=== PATIENT | female | born 1990 | race Caucasian/White ===

== ENCOUNTER → 2018-09-22 11:59 | Outpatient (CLI) | payer BC, SELFPAY ==
[2018-09-22 12:26] LABS: Basophils % 0.2 % (0.1-2.0); Eosinophils % 0.2 % (0.1-12.0); Hematocrit 35.7 % (37.0-47.0); Lymphocytes # 1.4 K/mm3 (0.7-4.5); Mean Corpuscular HGB Conc 33.6 g/dL (31.8-35.4); Mean Corpuscular Hemoglobin 29.7 pg (27.0-31.2); Mean Corpuscular Volume 88.4 fl (81-99); Mean Platelet Volume 6.8 fl (7.4-10.4); Monocytes # 0.3 K/mm3 (0.1-1.0); Monocytes % 6.4 % (1.7-9.3); Neutrophils # 3.5 K/mm3 (1.8-7.8); Neutrophils % 67.1 % (37.0-80.0); Platelet Count 277 K/mm3 (142-424); Red Blood Count 4.04 M/mm3 (4.20-5.40); Red Cell Distribution Width 13.3 % (11.5-17.5); White Blood Count 5.2 K/mm3 (4.8-10.8)
[2018-09-23 07:09] LABS: HIV Screen 4th Generation wRfx Non Reactive (Non Reactive)
[2018-09-24 16:30] LABS: Hepatitis B Surface Antigen Negative (Negative); Hepatitis C Antibody <0.1 s/co ratio (0.0-0.9); Rubella Antibodies, IgG 1.64 index (Immune >0.99)
[2018-09-24 16:33] LABS: Rapid Plasma Reagin Ab Titer Non Reactive (NonRea<1:1)
== END ==
PROVIDERS: Visit Provider Nurse Practitioner Obstetrics & Gynecology
DX: Z34.90 Encounter for supervision of normal pregnancy, unspecified, unspecified trimester (principal)
CPT/HCPCS: 36415; 85025; 86592; 86703; 86762; 86850; 87340; 87380; G0432

== ENCOUNTER → 2018-09-29 12:50 | Outpatient (CLI) | payer BC, SELFPAY ==
--- NOTE | 2018-09-29 12:52 | US_ITS ---
PROCEDURE: US OB <= 14 WEEKS FETUS CLINICAL INDICATION: US OB Dates COMPARISON: OBTV US OB transvaginal from 10/29/2017 TECHNIQUE: FINDINGS: An intrauterine gestational sac is present with a pole with a crown-rump length of 5.76 cm correlating to gestational age of 12.43 week. heart tones are present with an FHR of 161 bpm. Yolk sac is noted. The amnion and chorion . Adnexa: IMPRESSION: Live IUP at 12 weeks 3 days Estimated due date by Ultrasound is 04/10/2019 Dictated by: Kaushik Medina MD 09/29/2018 17:45 Signed by: <Electronically signed by Kaushik Medina MD in [place]> 09/29/2018 17:45
== END ==
PROVIDERS: Visit Provider Nurse Practitioner Obstetrics & Gynecology
DX: O26.841 Uterine size-date discrepancy, first trimester (principal)
CPT/HCPCS: 76801

== ENCOUNTER → 2018-11-24 12:56 | Outpatient (CLI) | payer BC, SELFPAY ==
--- NOTE | 2018-11-24 12:59 | US_ITS ---
PROCEDURE: US OB /MATERNAL DETAIL CLINICAL INDICATION: us ob complete COMPARISON: US OB <= 14 WEEKS FETUS from 09/29/2018 FINDINGS: Single viable intrauterine gestation. Cephalic position. Placenta: Posteriorplacenta grade 1. There is average amount fluid. The cervix appears satisfactory. Closed and measuring 4 cm in length. Transabdominal scanning Complete survey performed and was unremarkable on the submitted images as in PACS. No discrete anomalies identified on survey imaging by technologist. Active fetus. Three-vessel cord with satisfactory umbilical cord insertion. 4- chamber heart noted. Survey of brain & ventricles Unremarkable. Face and neck survey unremarkable. Diaphragm and chest views unremarkable. Abdomen: Both kidneys noted and unremarkable. Stomach noted and satisfactory. Spine: Survey of the spine satisfactory with no anomalies identified nor imaged. Both arms and legs noted. Amniotic Fluid: Adequate. Maternal adnexa: No significant findings. Measurements: Average ultrasound age 20 weeks and 3 days. Gestational Age 20 weeks 4 days Estimated due date by ultrasound age 0304/10/2019. Estimated weight 346.3 gramsgrams. BPD = 20 weeks 5 days OFD = 21 weeks 0 days HC = 20 weeks 1 day AC = 20 weeks 5 days FL = 20 weeks 0 days Growth Percentile= 32 percent% Heart Rate = 142 bpm Cerebellum = 21 weeks 3 days Humerus = 20 weeks 1 day HC/AC is 1.13 CI is 0.77 FL/BPD is 0.66 FL/AC is 0.21 IMPRESSION: There is a single live fetus which is in cephalic presentation with an average ultrasound age of 20 weeks and 3 days. No obvious anomalies evident. Please see above for detail Dictated by: Kaushik Medina MD 11/25/2018 06:56 Electronically signed by Kaushik Medina MD in [place] 11/25/2018 06:56
== END ==
PROVIDERS: Visit Provider Nurse Practitioner Obstetrics & Gynecology
DX: Z36.0 Encounter for antenatal screening for chromosomal anomalies (principal)
CPT/HCPCS: 76811

== ENCOUNTER → 2019-01-06 10:44 | Outpatient (CLI) | payer BC, SELFPAY ==
[2019-01-06 11:10] LABS: Glucose,Fasting 78 mg/dL (60-105)
[2019-01-06 12:31] LABS: Glucose 1 Hour 137 mg/dL (74-106)
== END ==
PROVIDERS: Visit Provider Nurse Practitioner Obstetrics & Gynecology
DX: O99.814 Abnormal glucose complicating childbirth (principal)
CPT/HCPCS: 36415; 82951

== ENCOUNTER → 2019-01-22 09:46 | Outpatient (CLI) | payer BC, SELFPAY ==
[2019-01-22 10:20] LABS: Glucose,Fasting 81 mg/dL (60-105)
[2019-01-22 11:52] LABS: Glucose 1 Hour 129 mg/dL (74-106)
[2019-01-22 12:54] LABS: Glucose 2 Hour 97 mg/dL (74-106)
[2019-01-22 13:37] LABS: Glucose 3 Hour 95 mg/dL (74-106)
== END ==
PROVIDERS: Visit Provider Nurse Practitioner Obstetrics & Gynecology
DX: O99.814 Abnormal glucose complicating childbirth (principal)
CPT/HCPCS: 36415; 82951

== ENCOUNTER 2019-02-14 14:41 | Outpatient (CLI) | payer BC, SELFPAY ==
[2019-02-14 14:51] VITALS: BMI 34.0
[2019-02-14 15:15] LABS: Microscopic, Urine URINE MICROSCOPIC (MICROSCOPIC)
[2019-02-14 15:28] VITALS: BP 118/74; PULSE 90; RESP 18; TEMP 36.9; O2SAT 100; BMI 34.0
[2019-02-14 15:41] LABS: Amphetamine/Metha Screen,Urine Negative ng/mL (<1000); Barbiturates Screen,Urine Negative ng/mL (<200); Benzodiazepines Screen,Urine Negative ng/mL (<200); Cannabinoid Screen,Urine Positive ng/mL (<50); Cocaine Screen,Urine Negative ng/mL (<300); Methadone Screen,Urine Negative ng/mL (<300); Opiate Screen,Urine Negative ng/mL (<300); Phencyclidine Screen,Urine Negative ng/mL (<25)
[2019-02-14 16:31] LABS: Appearance,Urine SL CLOUDY (Clear); Bilirubin,Urine Negative (Negative); Blood, Urine Negative (Negative); Color,Urine YELLOW (Yellow); Glucose,Urine (UA) Negative (Negative); Ketones,Urine Negative (Negative); Leukocyte Esterase,Urine Negative (Negative); Nitrate,Urine Negative (Negative); Protein,Urine Negative (Negative); Urobilinogen,Urine 0.2 EU/dl (0.2)
[2019-02-14 16:50] LABS: Amorphous Sediment,Urine Trace /lpf; Bacteria,Urine Trace /lpf; Squamous Epithelial Cell,Urine Occasional #/hpf (0-5); WBC,Urine Occasional #/hpf (0-3)
== END 2019-02-14 15:25 | disposition home or self-care (01) ==
LOC: OBOUT 14:42 → OB 14:43
PROVIDERS: Visit Provider Nurse Practitioner Obstetrics & Gynecology
DX: O36.8130 Decreased fetal movements, third trimester, not applicable or unspecified (principal); Z3A.32 32 weeks gestation of pregnancy
CPT/HCPCS: 59025; 80305; 81001

== ENCOUNTER → 2019-03-12 16:06 | Outpatient (CLI) | payer BC, SELFPAY | PROVIDERS: Visit Provider Nurse Practitioner Obstetrics & Gynecology | DX: Z34.90 Encounter for supervision of normal pregnancy, unspecified, unspecified trimester (principal) | CPT/HCPCS: 86403 ==

== ENCOUNTER 2019-04-10 03:47 | Inpatient (IN) ==
[2019-04-10 05:47] LABS: Microscopic, Urine URINE MICROSCOPIC (MICROSCOPIC)
[2019-04-10 05:50] LABS: Basophils % 0.1 % (0.1-2.0); Eosinophils % 0.3 % (0.1-12.0); Hematocrit 35.1 % (37.0-47.0); Hemoglobin 11.7 g/dL (12.2-16.2); Lymphocytes # 1.9 K/mm3 (0.7-4.5); Lymphocytes % 17.2 % (10-50); Mean Corpuscular HGB Conc 33.4 g/dL (31.8-35.4); Mean Corpuscular Volume 85.1 fl (81-99); Mean Platelet Volume 8.7 fl (7.4-10.4); Monocytes # 0.5 K/mm3 (0.1-1.0); Monocytes % 4.5 % (1.7-9.3); Neutrophils # 8.6 K/mm3 (1.8-7.8); Neutrophils % 77.9 % (37.0-80.0); Platelet Count 240 K/mm3 (142-424); Red Blood Count 4.13 M/mm3 (4.20-5.40)
[2019-04-10 05:51] LABS: Appearance,Urine CLEAR (Clear); Bilirubin,Urine Negative (Negative); Blood, Urine Negative (Negative); Color,Urine YELLOW (Yellow); Glucose,Urine (UA) Negative (Negative); Ketones,Urine Negative (Negative); Leukocyte Esterase,Urine 1+ (Negative); PH,Urine 6.5 (5.0-8.5); Protein,Urine Negative (Negative); Urobilinogen,Urine 0.2 EU/dl (0.2)
[2019-04-10 05:58] LABS: Anion Gap 12.5 mEq/L (5-15)
[2019-04-10 06:04] LABS: Barbiturates Screen,Urine Negative ng/ml (<200); Benzodiazepines Screen,Urine Negative ng/ml (<200)
[2019-04-10 06:04] LABS: Calcium 9.4 mg/dl (8.4-10.2)
[2019-04-10 06:05] LABS: Amphetamine/Metha Screen,Urine Negative ng/ml (<1000)
[2019-04-10 06:06] LABS: Cannabinoid Screen,Urine Negative ng/ml (<50)
[2019-04-10 06:26] LABS: Bacteria,Urine 2+ /lpf; RBC,Urine Occasional #/hpf (0-3)
[2019-04-10 07:04] LABS: Cocaine Screen,Urine Negative ng/ml (<300)
[2019-04-10 07:05] LABS: Methadone Screen,Urine Negative ng/ml (<300)
[2019-04-10 07:06] LABS: Opiate Screen,Urine Negative ng/ml (<300); Phencyclidine Screen,Urine Negative ng/ml (<25)
--- NOTE | 2019-04-10 08:13 | Progress Note ---
Labor Note - Subjective: Date: 04/10/19 Time: 08:12 regular contraction - Objective: NST:: Reactive Contractions:: every 2-3 minutes Cervical Dilation:: 2-3 Effacement:: 75% Station: -2 Membranes: artificially ruptured Comment:: I ruptured her membranes and there was clear fluid. - Fetus: Monitoring?: Yes monitoring type:: External - Assessment: Labor progressing?: Yes Cephalopelvic disproportion?: No Patient Problems: All Active Problems (Acute) Pelvic pain affecting (Acute) Bleeding in early (Acute) Miscarriage (Acute) - Plan: Anesthesia for epidural?: Yes Continue to labor down?: Yes Plan for ?: No Continue to monitor?: Yes Start pushing?: No
--- NOTE | 2019-04-10 10:00 | Progress Note ---
[facility] Anesthesia Checklist - Patient Identification Patient Identification: Arm Band, Verbal (Name & ) - Structural Data Admitted From: Home (OB) Planned Operative Procedure/s: labor epidural Consent for Planned Operative Procedure(s) Verified: Yes Verified Documents: Surgical Consent, History and Physical - Chart Verification Results Verified: CBC, BMP, UA - Additional verifications Patient : Yes Anesthesia Reactions: No - Airway Assessment C-Spine Mobility Assessed: Yes TMJ Mobility Assessed: Yes Dentition: Good Dentition - Neurological Assessment Level of Consciousness: Awake, Alert, Appropriate, Follows Commands Hx Seizures: No Numbness or tingling in extremities: No - Anesthesia Plan Anesthesia Risk discussed: Yes Anesthesia Plan: Verified ASA Class: II Anesthesia Type: Epidural [facility] History I have reviewed the patient's past medical history: Yes Medical History: Reports:: Gastroesophageal Reflux Disease(GERD) Denies:: Diabetes Mellitus Type 1, Diabetes Mellitus Type 2 *Have you ever received a pneumonia vaccine?: No *Have you received a flu vaccine this season?: No Anesthesia experience/problems:: no prior complications with labor epidurals Laterality Cases: Bilateral: Tonsillectomy Other Surgeries: No: Amputation: No Fractures: No - *Social History Smoking Status: Former smoker Alcohol Intake: never Substance Use Type: denies use *Occupational Status:: unemployed *Travel in the last 8 weeks: None Family Hx:: No significant family history Para: 2
--- NOTE | 2019-04-10 15:26 | Progress Note ---
Labor Note - Subjective: Date: 04/10/19 Time: 15:25 regular contraction - Objective: NST:: Reactive Contractions:: every 2-3 minutes Cervical Dilation:: 9-10 Effacement:: 100% Station: +1 Membranes: artificially ruptured - Fetus: Monitoring?: Yes monitoring type:: Internal and External - Assessment: Labor progressing?: Yes Cephalopelvic disproportion?: No Patient Problems: All Active Problems (Acute) Pelvic pain affecting (Acute) Bleeding in early (Acute) Miscarriage (Acute) - Plan: Anesthesia for epidural?: Yes Continue to labor down?: Yes Plan for ?: No Continue to monitor?: Yes Start pushing?: Yes Continue pushing?: Yes
--- NOTE | 2019-04-10 17:13 | Procedure Note ---
- Delivery Note Delivery Date:: 04/10/19 Delivery Time:: 16:29 Anesthesia Type: Epidural Was labor medically induced?: Yes Induction method: per pitocin protocol Gestational age (weeks): 39 Infant delivered prior to 39 weeks?: No Infant Gender: Male at 1 minute: 7 at 5 minutes: 9 LAC or MLE?: LAC Delivery Procedure:: She is a 28-year-old 3 para 2 at 39+ weeks gestational age. She was feeling pressure and we suspected a large for gestational age infant so we elected to induce her labor at term. She was started on IV oxytocin and had her membranes ruptured. Under labor epidural she progressed to full dilation and delivered with the assistance of low forceps a liveborn male child at 4:29 PM in the afternoon of April 10, 2019. She had been pushing for a couple of hours and was really quite fatigued. She did not think she could push anymore. Since the baby was well engaged we elected to place forceps. I used Fofana forceps with pads. The position of the baby was difficult to tell because of the molding of the head. However I did apply the forceps and using 1 long steady pull I was able to easily deliver the head over an intact perineum. It was noted that the baby was in the CECILE position. The bladder was empty. On deliver the head I then was able to easily deliver the anterior shoulder and the rest the infant's body atraumatically. The oropharynx and nasopharynx were bulb suction. The baby was vigorous. We allowed the cord to continue to pulsate for approximately 1 minute. The cord was then doubly clamped and cut and the was handed off to the nurses who assigned Apgars of 7 at 1 minute and [address] Lorenzo arrived shortly after delivery the baby. We then obtained cord blood as well as cord pH. The pH was 7.20. She had a small vaginal laceration that was repaired with a single interrupted [id number] 3-0 Vicryl Rapide suture. She also had a small right skin tear slightly lateral to her labia and this was repaired with a single interrupted 3- 0 Vicryl Rapide suture. Her estimated blood loss was approximately 500 cc. Laceration:: vaginal Placental Delivery Description: Spontaneous
[2019-04-11 07:28] LABS: Hematocrit 30.7 % (37.0-47.0); Hemoglobin 9.8 g/dL (12.2-16.2)
--- NOTE | 2019-04-11 08:26 | Progress Note ---
Internal Medicine - PN: Subj *Date: 04/11/19 *Time: 08:25 Interval history: She is doing well this morning. She is eating and drinking and ambulating. She is breast-feeding. Her lochia is normal. She denies any pain. Exam Vital signs and Labs for Last 24 Hours: Temp Pulse Resp BP Pulse Ox 98.2 F 90 18 121/72 98 04/10/19 05:36 04/10/19 05:36 04/10/19 05:36 04/10/19 05:36 04/10/19 05:36 Laboratory Results - last 24 hr 04/10/19 05:35: Antibody Screen Negative 04/10/19 16:41: Cord ABG pH 7.20 L* 04/11/19 06:20: Hgb 9.8 L, Hct 30.7 L I & O for Last 24 hours: Intake & Output 04/08/19 04/09/19 04/10/19 04/11/19 11:59 11:59 11:59 11:59 Weight 198 lb Microbiology Reports for the Last 24 Hours: Microbiology 04/10/19 05:05 Urine,Clean Catch Urine Culture - Preliminary NO GROWTH AFTER 24 HOURS - *Routine HEENT Exam Head: Present: normocephalic Eye: Present: EOMI, PERRL ENT: Present: mucous membranes moist Assessment and Plan (1) Forceps delivery Current visit: Yes Status: Acute Category: Medical Code(s): O75.9 - Complication of labor and delivery, unspecified - Assessment and plan all Dx Assessment and Plan for all problems:: She is doing very well. We will plan to send her home tomorrow.
[2019-04-12 05:36] VITALS: BP 121/80
--- NOTE | 2019-04-12 08:11 | Discharge Summary ---
General - General Admission date:: 04/10/19 Discharge date: 04/12/19 HPI HPI: She is a 28-year-old 4 now para 3 aborta 1 who is 39 3 weeks gestational age. She was term and feeling quite uncomfortable so we elected to induce her labor at term. Hospital Course Hospital Course: She was started on IV oxytocin had her membranes ruptured. Under labor epidural progressed to full dilation. She delivered with the assistance of outlet forceps liveborn male child at 4:29 PM in the afternoon of April 10, 2019. The baby weighed 8 pounds 15 ounces and was 20-1/2 inches long. He had Apgars of 7 at 1 minute and 9 at 5 minutes. She has done well and has remained afebrile with her hospitalization. She is eating and drinking and ambulating. She is breast-feeding. She has a positive blood, she is rubella immune and was group B streptococcus negative. Her injection maintenance technician is Dr. Lorenzo. She is discharged home to follow- up with me in approximately 2 weeks time. She will continue with her vitamins and iron. She was given the usual instructions with respect to limiting her activity, driving and sexual activity. Rhogam Administration: Not Indicated Objective Vital signs: Temp Pulse Resp BP Pulse Ox 98.0 F 80 18 121/80 100 04/12/19 05:04 04/12/19 05:04 04/12/19 05:04 04/12/19 05:04 04/11/19 20:30 no acute distress - *Routine HEENT Exam Head: Present: normocephalic Eye: Present: EOMI, PERRL ENT: Present: mucous membranes moist DS: Diagnosis - Discharge Diagnosis (1) Forceps delivery Status: Acute Discharge Plan - Patient Discharge Instructions ACTIVITY: No heavy lifting DIET: continue same diet Patient Instructions: DI for Hemorrhage, DI for Labor and Delivery, Vaginal , Vaginal Laceration - Follow up Plan Follow up with: Mark Boyle MD [Staff Physician] - Disposition: Home, Self-Senior Living Medications: Home Medications Medication Instructions Recorded Confirmed Type prenat.vits,omer,rap-olks-hwjoy 1 tab PO DAILY 09/22/18 04/10/19 History Ferrous Sulfate 325 mg PO DAILY 04/10/19 04/10/19 History Prescriptions/Medication Reconciliation: Continued prenat.vits,omer,quw-fcgg-eypxe 1 tab PO DAILY Ferrous Sulfate 325 mg PO DAILY - Problem Reconciliation Problems Reviewed?: Yes
== END 2019-04-12 12:50 | disposition home or self-care (01) | DRG 807 ==
LOC: OB 05:00
PROVIDERS: ADMIT Nurse Practitioner Obstetrics & Gynecology; ATTEND Nurse Practitioner Obstetrics & Gynecology
CPT/HCPCS: J2405

== ENCOUNTER → 2020-11-21 09:47 | Outpatient (CLI) | payer BC, SELFPAY ==
[2020-11-21 10:45] LABS: Basophils % 0.2 % (0.1-2.0); Eosinophils % 0.2 % (0.1-12.0); Hematocrit 37.3 % (37.0-47.0); Hemoglobin 12.5 g/dL (12.2-16.2); Lymphocytes # 1.6 K/mm3 (0.7-4.5); Lymphocytes % 24.9 % (10-50); Mean Corpuscular HGB Conc 33.6 g/dL (31.8-35.4); Mean Corpuscular Hemoglobin 29.5 pg (27.0-31.2); Mean Corpuscular Volume 87.7 fl (81-99); Mean Platelet Volume 7.5 fl (7.4-10.4); Monocytes # 0.3 K/mm3 (0.1-1.0); Neutrophils # 4.4 K/mm3 (1.8-7.8); Neutrophils % 69.7 % (37.0-80.0); Platelet Count 244 K/mm3 (142-424); Red Blood Count 4.25 M/mm3 (4.20-5.40); Red Cell Distribution Width 12.6 % (11.5-17.5); White Blood Count 6.3 K/mm3 (4.8-10.8)
[2020-11-22 08:14] LABS: HSV 2 IgG, Type Spec <0.91 index (0.00-0.90)
[2020-11-22 09:24] LABS: Hepatitis B Surface Antigen Negative (Negative); Hepatitis C Antibody 0.2 s/co ratio (0.0-0.9)
[2020-11-22 11:42] LABS: HIV Screen 4th Generation wRfx Non Reactive (Non Reactive); Rapid Plasma Reagin Ab Titer Non Reactive (NonRea<1:1)
== END ==
PROVIDERS: Visit Provider Nurse Practitioner Obstetrics & Gynecology
DX: Z34.90 Encounter for supervision of normal pregnancy, unspecified, unspecified trimester (principal)
CPT/HCPCS: 36415; 85025; 86592; 86695; 86703; 86762; 86790; 86850; 87340; 87380; G0432

== ENCOUNTER → 2020-12-01 14:27 | Outpatient (CLI) | payer BC, SELFPAY ==
--- NOTE | 2020-12-01 14:36 | US_ITS ---
PROCEDURE INFORMATION: Exam: US ; Follow up Exam date and time: 12/01/2020 2:36 PM Age: 30 years old Clinical indication: Condition or disease; Lmp or gestational age (weeks): 13 w 5 d; Other: Early ultrasound for dating ; 5th ; ; Additional info: For dates TECHNIQUE: Imaging protocol: Transabdominal ultrasound of the uterus, real time with image documentation. Follow-up (eg, re-evaluation of size by measuring standard growth parameters and amniotic fluid volume, re-evaluation of organ system(s) suspected or confirmed to be abnormal on a previous scan). COMPARISON: US OB /MATERNAL DETAIL 11/24/2018 12:49 PM FINDINGS: Gestation: Intrauterine gestation. heart rate: Heart rate 156 bpm Placenta: Anterior placenta BIOMETRY: Estimated due date (AUA): FABIEN June 06. Truman-Rump length: Truman-rump length measures 6.99 cm corresponding to 13 weeks 2 days. IMPRESSION: 1. Truman-rump length measures 6.99 cm corresponding to 13 weeks 2 days. 2. FABIEN June 06.
== END ==
PROVIDERS: Visit Provider Nurse Practitioner Obstetrics & Gynecology
DX: Z34.90 Encounter for supervision of normal pregnancy, unspecified, unspecified trimester (principal)
CPT/HCPCS: 76801

== ENCOUNTER → 2021-01-21 07:52 | Outpatient (CLI) | payer BC, SELFPAY ==
--- NOTE | 2021-01-21 07:52 | US_ITS ---
PROCEDURE: US OB /MATERNAL DETAIL CLINICAL INDICATION: 20 wk + Anatomy Scan-US OB COMPLETE COMPARISON: US US OB <= 14 WEEKS FETUS from 12/01/2020 FINDINGS: There is a single live IUP in breech presentation. The cervix is closed measuring approximately 3 cm. heart body motion noted. The placenta is anterior and grade 1. Complete survey performed and was unremarkable on the submitted images as in PACS. No discrete anomalies identified on survey imaging by technologist. Active fetus. Three-vessel cord with satisfactory umbilical cord insertion. 4- chamber heart noted. Survey of brain & ventricles Unremarkable. Face and neck survey unremarkable. Diaphragm and chest views unremarkable. Abdomen: Both kidneys noted and unremarkable. Stomach noted and satisfactory. Spine: Survey of the spine satisfactory with no anomalies identified nor imaged. Both arms and legs noted. Amniotic Fluid: Adequate. Maternal adnexa: No significant findings. Measurements: Average ultrasound age 21weeks 1day. Gestational Age 21weeks 1day Estimated due date by ultrasound age 0406/02/2021. Estimated weight 422g BPD = 21weeks OFD = 21weeks HC = 20weeks 2days AC = 21weeks 6days FL = 21weeks 3days Growth Percentile= 67% Heart Rate = 150bpm Cerebellum = 21weeks 1day Humerus = 21weeks 5days HC/AC is 1.06 CI is 0.78 FL/BPD is 0.73 FL/AC is 0.21 IMPRESSION: Live IUP in breech presentation with an average ultrasound age of 21 weeks 1 day. No obvious anomalies. Please see above for detail. Dictated by: Kaushik Medina MD 01/21/2021 16:28 Kaushik Medina MD in [place] 01/21/2021 16:28
== END ==
PROVIDERS: PCP Nurse Practitioner Obstetrics & Gynecology; Visit Provider Nurse Practitioner Obstetrics & Gynecology
DX: Z36.0 Encounter for antenatal screening for chromosomal anomalies (principal)
CPT/HCPCS: 76811

== ENCOUNTER → 2021-05-02 10:49 | Outpatient (CLI) | payer BC, SELFPAY ==
[2021-05-02 11:49] LABS: Glucose,Fasting 78 mg/dl (74-100)
[2021-05-02 13:06] LABS: Glucose 1 Hour 122 mg/dL (74-100)
[2021-05-02 14:37] LABS: Glucose 2 Hour 112 mg/dL (74-100)
[2021-05-02 15:22] LABS: Glucose 3 Hour 91 mg/dL (74-100)
== END ==
PROVIDERS: Visit Provider Nurse Practitioner Obstetrics & Gynecology
DX: Z34.90 Encounter for supervision of normal pregnancy, unspecified, unspecified trimester (principal)
CPT/HCPCS: 36415; 82951

== ENCOUNTER → 2021-05-06 14:57 | Outpatient (CLI) | payer BC, SELFPAY ==
--- NOTE | 2021-05-06 14:57 | US_ITS ---
FINAL REPORT CLINICAL HISTORY: LGA FINDINGS: There is a single live intrauterine gestation. Presentation is cephalic. Placenta is anterior. Heart rate is 134 beats per minute. AMNIOTIC FLUID: Appropriate amount. GAMALIEL: 16.7 cm which is normal. MEASUREMENTS: ULTRASOUND AGE: 36 weeks 0 days. GESTATION AGE: 36 weeks 0 days. ESTIMATED WEIGHT: 2797 g GROWTH PERCENTILE: 40% BPD: 8.9 cm corresponding with 36 weeks 0 days. OFD: 11.1 cm corresponding with 36 weeks 0 days. HC: 31.6 cm corresponding with 35 weeks 4 days. AC: 32.1 cm corresponding with 36 weeks 0 days. FL: 7 cm corresponding with 36 weeks 0 days. HC/AC: 0.98 CI: 80% FL/BPD: 79% FL/AC: 22% BIOPHYSICAL PROFILE Breathin Movement: 2 Tone: 2 Fluid volume: 2 Hip BPP: 09/14 IMPRESSION: Single living IUP with an ultrasound age of 36 weeks 0 days. GAMALIEL of 16.7 cm Reviewed, Interpreted and Dictated by Herbie Islas III, MD Transcribed by Alida oDuglass Authenticated by Herbie Islas III, MD on 05/06/2021 04:27:26 PM [facility]
== END ==
PROVIDERS: PCP Nurse Practitioner Obstetrics & Gynecology; Visit Provider Nurse Practitioner Obstetrics & Gynecology
DX: O36.60X0 Maternal care for excessive fetal growth, unspecified trimester, not applicable or unspecified (principal)
CPT/HCPCS: 76816; 76819

== ENCOUNTER → 2021-05-14 13:44 | Outpatient (CLI) | payer BC, SELFPAY | PROVIDERS: Visit Provider Obstetrics & Gynecology | DX: Z34.90 Encounter for supervision of normal pregnancy, unspecified, unspecified trimester (principal) | CPT/HCPCS: 86403 ==

== ENCOUNTER 2021-06-01 06:23 | Inpatient (IN) | payer BC, SELFPAY ==
--- NOTE | 2021-06-01 07:05 | P.PCN_ITS ---
- Delivery Note Delivery Date:: 06/01/21 Delivery Time:: 06:56 Anesthesia Type: None Was labor medically induced?: No Induction method: none Gestational age (weeks): 40 delivered prior to 39 weeks?: No Justification for early elective delivery:: Active Labor Infant Gender: Male at 1 minute: 8 at 5 minutes: 9 AF:: Thin meconium Delivery Procedure:: She is a 30-year-old 4 para 3 at 40 weeks gestational age. She came in in active labor and was found to be fully dilated with a bulging bag of water. She had her membranes ruptured and there was thin meconium. She pushed 1 time and delivered a liveborn male child at 6:56 AM on the morning of June 01, 2021. On deliver the head the anterior shoulder then rapidly delivered followed by the rest the infant's body atraumatically. We suction the oropharynx and nasopharynx with DeLee suction. There was thin meconium. The baby then cried spontaneously. The cord was allowed to pulsate for approximately 1 minute. The cord was then doubly clamped and cut and the was placed on the warmer for further care. The nurses assigned Apgars of 8 at 1 minute and 9 at 5 minutes. We then obtained cord blood. She received IV oxytocin and using gentle traction on the cord and countertraction the fundus I was able to easily deliver the placenta intact. It had a normal three-vessel cord. There were no perineal or vaginal lacerations. She has a positive blood, she is rubella immune and was group B streptococcus negative. Her research librarian is Dr. Lorenzo. Estimated blood loss was approximately 150 cc. Placental Delivery Description: Spontaneous
--- NOTE | 2021-06-01 07:08 | HMH.OBAPHP ---
OB - H&P: HPI Antepartum - History of Present Illness Chief complaint: Active labor History of present illness: She is a 30-year-old 4 para 3 at 40 weeks gestational age. She arrived in active labor with a bulging bag of water. - History of Present Criteria for establishing EDC:: LMP confirmed by 1st trimester US care: good care Ultrasounds: normal 1st trimester US, normal mid trimester US Obstetrical complications: none Medical complications: none - Labs Blood type: A (+) positive Rubella: immune RPR/VDRL: nonreactive GBS status: negative HBsAG: negative [facility] History I have reviewed the patient's past medical history: Yes Medical History: Reports:: Anxiety, Depression, Gastroesophageal Reflux Disease(GERD) Denies:: Diabetes Mellitus Type 1, Diabetes Mellitus Type 2, Seizures *Have you ever received a pneumonia vaccine?: No *Have you received a flu vaccine this season?: No Laterality Cases: Bilateral: Tonsillectomy Other Surgeries: Yes: No Previous Surgery. No: Amputation: No Fractures: No - *Social History Smoking Status: Former smoker Alcohol Intake: never Substance Use Type: denies use *Occupational Status:: unemployed *Travel in the last 8 weeks: None - Psychiatric History Pschychiatric History:: Reports:: Anxiety, Depression Family Hx:: No significant family history Review of Systems - Review of Systems Review of systems:: pertinent systems reviewed and negative unless documented below Meds Home Medications Medication Instructions Recorded Confirmed Type prenat.vits,omer,bwp-ujnu-ypmgn 1 tab PO DAILY 09/22/18 05/28/21 History fluoxetine 10 mg capsule 10 mg PO DAILY #90 cap 03/30/21 05/28/21 Rx Allergies Allergy/AdvReac Type Severity Reaction Status Date / Time No Known Allergies Allergy Verified 05/28/21 11:31 OB - H&P: Exam - Constitutional no acute distress - Routine HEENT Exam Head: Present: normocephalic Eye: Present: EOMI, PERRL ENT: Present: mucous membranes moist - Routine Neck Exam Present: supple, full ROM - Routine Respiratory Exam Absent: accessory muscle use (good air entry bilaterally), respiratory distress, wheezes, crackles - Routine Cardiovascular Exam Present: RRR. Absent: murmur - Routine Abdominal Exam Present: soft, normoactive bowel sounds. Absent: tenderness, distended, guarding - Routine Rectal Exam Patient deferred: visual exam, digital exam - Routine Exam Patient deferred: external exam, groin exam, perineal exam - Routine Extremities Exam Present: full ROM. Absent: cyanosis, edema - Routine Skin Exam Present: intact. Absent: cyanosis - Routine Neurological Exam Present: alert, oriented X3 - Routine Psychiatric Exam Present: normal affect OB - A/P Antepartum (1) Normal delivery at term Status: Acute - Additional Plan Planning to breastfeed?: Yes Plan: other Additional Information:: She arrived in active labor and delivered spontaneously a liveborn male child.
[2021-06-01 07:10] VITALS: BMI 33.1
[2021-06-01 07:14] VITALS: BP 139/97; PULSE 74; RESP 21; TEMP 37.1; O2SAT 97; BMI 33.1
[2021-06-01 07:24] LABS: Basophils % 0.2 % (0.1-2.0); Eosinophils # 0.1 K/mm3 (0.0-0.4); Eosinophils % 0.4 % (0.1-12.0); Hematocrit 37.4 % (37.0-47.0); Hemoglobin 12.8 g/dL (12.2-16.2); Lymphocytes # 2.2 K/mm3 (0.7-4.5); Lymphocytes % 18.2 % (10-50); Mean Corpuscular HGB Conc 34.1 g/dL (31.8-35.4); Mean Corpuscular Hemoglobin 29.2 pg (27.0-31.2); Mean Corpuscular Volume 85.7 fl (81-99); Mean Platelet Volume 7.8 fl (7.4-10.4); Monocytes # 0.6 K/mm3 (0.1-1.0); Neutrophils # 9.2 K/mm3 (1.8-7.8); Neutrophils % 76.2 % (37.0-80.0); Platelet Count 230 K/mm3 (142-424); Red Blood Count 4.37 M/mm3 (4.20-5.40); Red Cell Distribution Width 13.5 % (11.5-17.5)
[2021-06-01 07:39] LABS: Coronavirus 19, PCR Not Detected (NotDetected); Influenza A, PCR Not Detected (NotDetected); Influenza B, PCR Not Detected (NotDetected)
[2021-06-01 12:41] LABS: Microscopic, Urine URINE MICROSCOPIC (MICROSCOPIC)
[2021-06-01 12:44] LABS: Appearance,Urine CLOUDY (Clear); Blood, Urine 3+ (Negative); Color,Urine YELLOW (Yellow); Glucose,Urine (UA) Negative (Negative); Ketones,Urine TRACE (Negative); Leukocyte Esterase,Urine TRACE (Negative); Nitrate,Urine Negative (Negative); PH,Urine 6.5 (5.0-8.5); Protein,Urine 1+ (Negative); Specific Gravity, Urine 1.025 (1.005-1.030); Urobilinogen,Urine 0.2 EU/dl (0.2)
[2021-06-01 12:45] LABS: Bilirubin,Urine 1+ (Negative)
[2021-06-01 12:57] LABS: Barbiturates Screen,Urine Negative ng/ml (<200)
[2021-06-01 12:58] LABS: Benzodiazepines Screen,Urine Negative ng/ml (<200)
[2021-06-01 12:59] LABS: Amphetamine/Metha Screen,Urine Negative ng/ml (<1000); Cannabinoid Screen,Urine Positive ng/ml (<50)
[2021-06-01 13:00] LABS: Cocaine Screen,Urine Negative ng/ml (<300); Methadone Screen,Urine Negative ng/ml (<300)
[2021-06-01 13:01] LABS: Opiate Screen,Urine Negative ng/ml (<300)
[2021-06-01 13:02] LABS: Phencyclidine Screen,Urine Negative ng/ml (<25)
[2021-06-01 13:08] LABS: RBC,Urine TNTC #/hpf (0-3)
[2021-06-01 21:17] VITALS: BP 133/77; PULSE 67; RESP 18; TEMP 36.7; O2SAT 98
[2021-06-02 04:21] VITALS: BP 134/74; PULSE 60; RESP 18; TEMP 36.7; O2SAT 97
[2021-06-02 08:03] LABS: Hematocrit 33.5 % (37.0-47.0); Hemoglobin 11.1 g/dL (12.2-16.2)
[2021-06-02 08:30] VITALS: BP 114/86; PULSE 80; RESP 18; TEMP 36.9; O2SAT 98
--- NOTE | 2021-06-02 08:56 | HMH.ACPN2 ---
Internal Medicine - PN: Subj *Date: 06/02/21 *Time: 08:56 Interval history: She is doing very well . She is eating and drinking and ambulating. She is breast-feeding. Her lochia is normal. Exam Vital signs and Labs for Last 24 Hours: Temp Pulse Resp BP Pulse Ox 98.4 F 80 18 114/86 98 06/02/21 08:30 06/02/21 08:30 06/02/21 08:30 06/02/21 08:30 06/02/21 08:30 Laboratory Results - last 24 hr 06/01/21 07:12: Urine Color Yellow, Urine Appearance Cloudy, Urine pH 6.5, Ur Specific [place] 1.025, Urine Protein 1+, Urine Glucose (UA) Negative, Urine Ketones Trace, Urine Blood 3+, Urine Nitrate Negative, Urine Bilirubin 1+ A, Urine Urobilinogen 0.2, Ur Leukocyte Esterase Trace, Urine RBC Tntc, Urine WBC 3-5, Ur Squamous Epith Cells 3-5, Urine Bacteria None 06/01/21 07:12: Urine Opiates Screen Negative, Urine Methadone Screen Negative, Ur Barbituates Screen Negative, Ur Phencyclidine Scrn Negative, Ur Amphetamines Screen Negative, U Benzodiazepines Scrn Negative, Urine Cocaine Screen Negative, U Marijuana (THC) Screen Positive H 06/02/21 07:25: Hgb 11.1 L, Hct 33.5 L I & O for Last 24 hours: Intake & Output 05/30/21 05/31/21 06/01/21 06/02/21 11:59 11:59 11:59 11:59 Weight 187 lb - Constitutional no acute distress - *Routine HEENT Exam Head: Present: normocephalic Eye: Present: EOMI, PERRL ENT: Present: mucous membranes moist Assessment and Plan (1) Normal delivery at term Status: Acute Category: Medical Code(s): O80 - Encounter for full-term uncomplicated delivery - Assessment and plan all Dx Assessment and Plan for all problems:: She continues to do well. We will plan to send her home tomorrow. She is breast-feeding well.
--- NOTE | 2021-06-02 13:55 | SW/DCPLANNER ---
Addendum entered by Sera Casey 06/08/21 14:48: I have made a new CPS report to Central Intake regarding positive THC infant cord screen: ID# [id number]. Addendum entered by Sera Casey 06/03/21 09:30: This case did not meet criteria by Central Intake. Original Note: I received a consult for this patient regarding: positive at admission and during first visit. Infant male (Sam Powell) was born on 06/01/2022. Infant's father (Saulo Powell 11/22/94) was present at the time of my interview. Patient, Saulo, and three other children (Katt Yusuf 01/23/13, Marcell Rdz 08/28/08 and Ray Powell 04/10/19) will reside at [address] [place] [address] in [place] [address]. Patient's contact number is [phone]. Patient stated that she has not had any past Social Service involvement. Patient stated that she will contact [facility] department. Patient does have the following items at home: crib, carseat, clothing, diapers and will be breast feeding. Due to positive THC at admission 06/01/21 I have reported this case to Central Intake ID#:[id number]. 's urine drug screen was cancelled due to irritation.
[2021-06-02 16:00] VITALS: BP 125/71; PULSE 68; RESP 20; TEMP 36.8; O2SAT 100
[2021-06-02 20:29] VITALS: BP 135/75; PULSE 63; RESP 18; TEMP 36.8; O2SAT 97
[2021-06-03 03:45] VITALS: BP 131/65; PULSE 63; RESP 18; TEMP 36.8; O2SAT 98
[2021-06-03 08:00] VITALS: BP 116/76; PULSE 80; RESP 18; TEMP 36.8; O2SAT 100
--- NOTE | 2021-06-03 09:32 | HMH.OBDCSM ---
General - General Admission date:: 06/01/21 Discharge date: 06/03/21 HPI - History of Present Illness History of present illness: She is a 30-year-old 5 now para 4 aborta 1 who was 39 in 2 weeks gestational age. She arrived in active labor and was found to be fully dilated. Hospital Course Hospital Course: She progressed to full dilation and delivered spontaneously a liveborn male child at 6:56 AM on the morning of June 01, 2021. The baby weighed 7 pounds 12 ounces and was 20 inches long. He had Apgars of 8 at 1 minute and 9 at 5 minutes. She has done well and has remained afebrile without her hospitalization. She is eating and drinking and ambulating. She is breast-feeding. She has a positive blood, she is rubella immune and was group B streptococcus negative. Her briquetting machine operator is Dr. Lorenzo. sales agent business services has been consulted and we are waiting the results of this. We will plan to send her home today to follow-up with me in 2 weeks time. She was given the usual instructions with respect to limiting her activity, driving and sexual activity. She will follow-up with Dr. Lorenzo with the baby. Her condition on discharge is stable. Rhogam Administration: Not Indicated Objective Vital signs: Temp Pulse Resp BP Pulse Ox 98.3 F 80 18 116/76 100 06/03/21 08:00 06/03/21 08:00 06/03/21 08:00 06/03/21 08:00 06/03/21 08:00 no acute distress - *Routine HEENT Exam Head: Present: normocephalic Eye: Present: EOMI, PERRL ENT: Present: mucous membranes moist DS: Diagnosis - Discharge Diagnosis (1) Normal delivery at term Status: Acute Discharge Plan - Patient Discharge Instructions ACTIVITY: No heavy lifting DIET: continue same diet Additional Instructions: Drink plenty of fluids Nothing in the vagina for 6 weeks no tub baths Patient Instructions: Depression, Hemorrhage, DI for Labor and Delivery, Vaginal , DI for Pre-eclampsia, [facility] Post Discharge Instructions, Preventing the Spread of Coronavirus Discharge Instructions - Follow up Plan Follow up with: Mark Boyle MD [Staff Physician] - Disposition: Home, Self-Care Condition at discharge:: Stable Home Medications: Home Medications Medication Instructions Recorded Confirmed Type No Known Home Medications 06/01/21 06/01/21 History Prescriptions/Medication Reconciliation: Continued No Known Home Medications - Problem Reconciliation Problems Reviewed?: Yes
== END 2021-06-03 10:40 | disposition home or self-care (01) | DRG 807 ==
PROVIDERS: Admitting Provider Obstetrics & Gynecology; PCP Emergency Medicine; Visit Provider Nurse Practitioner Obstetrics & Gynecology
DX: O80 Encounter for full-term uncomplicated delivery (principal); Z37.0 Single live birth; Z3A.40 40 weeks gestation of pregnancy
CPT/HCPCS: 59409; 59025; 80305; 81001; 85014; 85018; 85025; 86850; C9803; U0003; U0005

== ENCOUNTER 2022-11-01 10:18 | Emergency (ER) | payer BC, SELFPAY ==
[2022-11-01 10:50] VITALS: BP 135/89; PULSE 74; RESP 16; TEMP 36.6; O2SAT 100; BMI 27.4
--- NOTE | 2022-11-01 11:24 | EXP.UTC ---
Discharge Plan Disposition Patient Disposition: Home, Self-Care Condition: Good Prescriptions Prescriptions: New ondansetron 4 mg tablet,disintegrating 4 mg PO Q8H PRN (Reason: nausea and vomiting) Qty: 6 0RF No Action fluoxetine [Prozac] 20 mg capsule 20 mg PO DAILY Qty: 30 10RF fluticasone propionate 120 PUFFS HFA aerosol inhaler 110 gm IA BID Qty: 1 1RF Referrals Follow up/Referrals: Provider,Referral, MD [Primary Care Provider] - See instructions Activity Restrictions/Add. Instructions Additional Instructions/Restrictions: Drink extra fluids with and between meals. If you have difficulty drinking, try very small amounts of water or suck on ice chips. ? Avoid fruit juices, as these do not replace minerals and can actually increase diarrhea. ? Children and adults can use sports drinks to replenish electrolytes. Younger children and infants should use products formulated for children, like oral rehydration solutions. ? Eat food in small amounts and let your stomach recover. ? Get lots of rest. You may feel tired or weak. ? No greasy or fried foods for the next 24-48 hours BRAT diet Bananas Rice Apples and [place] ? Make sure to drink plenty of liquids ? Return if needed ? Straight to ER if any life threatening symptoms ? Zofran as prescribed ? You was given an outpatient order for diarrhea panel, please collect specimen and bring back to outpatient lab then call back to the [facility] [[email or web address]] or follow up with family doctor for results ? Follow up with family doctor in the next 48-72 hours if no improvement or any worsening of symptoms Clinical Impressions Clinical Impression: Viral syndrome Instructions Patient Instructions: Diarrhea, Nausea and Vomiting-Adult Discharge ED Provider[place] Shoshana Greenberg [facility] [place] General Stated complaint: diarrhea, stomach pain Mode of Arrival: Ambulatory Source of Information: Patient Limitations: No Limitations Time Seen by Provider: 11/01/22 11:24 Description of Symptoms (Recalled from Triage Doc. by RN): PATIENT C/O DIARRHEA AND NAUSEA HEENT Symptoms (Recalled from RN notes): No Resp Symptoms (Recalled from RN notes): No Skin Symptoms (Recalled from RN notes): No MS Symptoms (Recalled from RN notes): No Functional Status (Recalled from RN notes): WNL History of Present Illness Provider Complaint: Patient states that all her kids has been sick with diarrhea and now she is having nausea and diarrhea States that she has vomited a couple of times but not today States that she was worried they had some kind of virus to cause diarrhea Related Data Previous Rx's Medication Instructions Recorded fluticasone propionate 110 110 gm intra-arterial BID #1 ea 06/03/21 mcg/actuation HFA aerosol inhaler fluoxetine 20 mg capsule (Prozac) 20 mg PO DAILY #30 caps 06/05/21 ondansetron 4 mg disintegrating 4 mg PO Q8H PRN nausea and 11/01/22 tablet vomiting #6 tabs Allergies Allergy/AdvReac Type Severity Reaction Status Date / Time No Known Allergies Allergy Verified 05/28/21 11:31 Worker's Comp Is this a Worker's Comp case?: No [facility] Disclaimer: The information contained in this section may have been updated after the patient was seen, as this information can be updated by other users. Social History Smoking Status: Former smoker alcohol intake: never substance use type: denies use current occupational status: unemployed Travel in the last 8 weeks: None ROS Obtained: Yes All systems reviewed & no additional complaints except as documented and Yes Systems reviewed as appropriate & no additional complaints except as documented Constitutional Constitutional: Reports system reviewed and no additional complaints, except as documented, Reports as per HPI and Denies fever(s) ENT Ears, Nose, Mouth, and Throat: Reports system reviewed and no additional compl
[2022-11-01 11:25] VITALS: BP 135/89; PULSE 74; RESP 16; TEMP 36.6; O2SAT 100
== END 2022-11-01 11:49 | disposition home or self-care (01) ==
PROVIDERS: Emergency Provider Nurse Practitioner
DX: R19.7 Diarrhea, unspecified (principal); R11.0 Nausea; Z87.891 Personal history of nicotine dependence
CPT/HCPCS: 99204; 99212; G0463

== ENCOUNTER 2024-02-08 08:42 | Emergency (ER) | payer OTHER, SELFPAY ==
[2024-02-08 08:58] VITALS: BP 122/62; PULSE 68; RESP 18; TEMP 37; O2SAT 99; BMI 32.2
--- NOTE | 2024-02-08 09:22 | ED_ITS ---
Discharge Plan Disposition Patient Disposition: Home, Self-Care Condition: Good Prescriptions Prescriptions: New ibuprofen [IBU] 800 mg tablet 800 mg PO Q8HP PRN (Reason: Moderate Pain) Qty: 30 0RF amoxicillin-pot clavulanate 875-125 mg Tablet 1 tab PO Q12H Qty: 20 0RF Referrals Follow up/Referrals: Provider,Referral, [Primary Care Provider] - See instructions Activity Restrictions/Add. Instructions Additional Instructions/Restrictions: Drink plenty of fluids. Take tylenol or ibuprofen for pain or fever. Take the medications as directed. Follow up with your regular doctor. Follow up with your dentist. GO TO THE ER FOR ANY WORSENING SYMPTOMS Clinical Impressions Clinical Impression: Dental abscess, Jaw pain, Pain, dental Instructions Patient Instructions: DI for Tooth Abscess Print Language Print Language: Thai Discharge ED Provider: Ramesh Da Silva [facility] [place] General Stated complaint: right side face swollen, painful Mode of Arrival: Ambulatory Source of Information: Patient Time Seen by Provider: 02/08/24 08:58 Description of Symptoms (Recalled from Triage Doc. by RN): PAIN IN JAW, GUMS, TEETH, AND EYE SOCKET. SINUS PRESSURE, EAR/TOOTHACHE, SWELLING HEENT Symptoms (Recalled from RN notes): Yes Resp Symptoms (Recalled from RN notes): No Skin Symptoms (Recalled from RN notes): No MS Symptoms (Recalled from RN notes): No Functional Status (Recalled from RN notes): WNL History of Present Illness Provider Complaint: She states that for the past 1 week she has had worsening right upper jaw dental pain and swelling around a tooth. She states that she is having right sided facial puffiness and swelling below her right eye now. Related Data Previous Rx's ?Medication ?Instructions ?Recorded amoxicillin 875 mg-potassium 1 tab PO Q12H #20 tabs 02/08/24 clavulanate 125 mg tablet ibuprofen 800 mg tablet (IBU) 800 mg PO Q8HP PRN Moderate Pain 02/08/24 #30 tabs Allergies Allergy/AdvReac Type Severity Reaction Status Date / Time No Known Allergies Allergy Verified 01/24/24 13:31 Worker's Comp Is this a Worker's Comp case?: No [facility] Disclaimer: The information contained in this section may have been updated after the patient was seen, as this information can be updated by other users. Social History Smoking Status: Former smoker alcohol intake: never substance use type: denies use current occupational status: unemployed Travel in the last 8 weeks: None Have you lived/traveled outside [place] in past 30 days?: No Contact w/someone who lives/traveled outside [place] past 30 days?: No Exposure to someone with infectious disease in past 14 days?: No Do you have a fever (greater than 100.4 F or 38 C)?: No Have you tested positive for COVID-19: No Exposed to someone with COVID-19 in past 14 days?: No Do you have a sore throat?: No Do you have a cough?: No Do you have any weakness?: No Do you have any diarrhea?: No Are you experiencing any unusual bleeding?: No Do you have any muscle aches/pain?: No Do you have any abdominal pain?: No Are you experiencing loss of taste or smell?: No ROS Obtained: Yes All systems reviewed & no additional complaints except as documented Constitutional Constitutional: Denies chills and Denies fever(s) Eyes Eyes: Denies eye discharge ENT Ears, Nose, Mouth, and Throat: Reports as per HPI, Denies dizziness, Denies otalgia and Denies sore throat Cardiovascular Cardiovascular: Denies chest pain Respiratory Respiratory: Denies shortness of breath, Denies chest congestion, Denies cough, Denies stridor and Denies wheezing Gastrointestinal Gastrointestingal: Denies nausea or vomiting Musculoskeletal Musculoskeletal: Reports system reviewed and no additional complaints, except as documented and Denies arthralgias Integumentary/Breasts Skin/Breast: Denies rash Neurologic Neurologic: Denies dizziness and Denies paresthesias Allergic/Immunologic Allergic/Immunologic: Denies wheezing Physical Exam General General appearance: alert and in no apparent distress Head Head exam: atraumatic, normocephalic and normal inspection Eye Eye exam: Present normal appearance, PERRL and EOMI ENT ENT exam: Present mucous membranes moist, TM's normal bilaterally and normal external ear exam Expanded ENT Exam Nose exam: Absent sinus tenderness Nasal speculum exam: Bilateral: normal Mouth exam: Present normal external inspection; Absent drooling Teeth exam: Present dental caries, dental tenderness # and gingival swelling Throat exam: Present normal inspection Neck Neck exam: Present normal inspection, full ROM and trachea midline; Absent meningismus or lymphadenopathy Chest Chest inspection: Present normal inspection and symmetric chest wall rise; Absent tenderness Respiratory Respiratory exam: Present normal lung sounds bilaterally; Absent respiratory distress Cardiovascular Cardiovascular exam: Present regular rate and normal rhythm; Absent JVD Abdominal Exam Abdominal exam: Present soft and normal bowel sounds; Absent distention, tenderness or guarding Extremities Exam Extremities exam: Present normal inspection, full ROM and normal capillary refill; Absent calf tenderness Back Exam Back exam: Present normal inspection; Absent tenderness Neurological Exam Neurological exam: Present alert and oriented X3 Psychiatric Psychiatric exam: Present normal affect and normal mood Skin Skin exam: Present warm, dry, intact and normal color Lymphatic Lymphatic Findings: no adenopathy Medical Decision Making Medical Records Medical records reviewed: No I reviewed the patient's medical records. Screening: Per USPSTF and CDC recommendations, given the [facility], it is our hospital?s policy to screen for HIV and viral Hepatitis for all patients aged 18 and over and those with ongoing risk factors. [place]iaz Inquiry Pt receiving controlled substance: No Vital Signs: 02/08/24 08:58 Temperature 98.6 F Temperature Source Oral Pulse Rate [Left Brachial] 68 Respiratory Rate 18 Blood Pressure [Left Arm] 122/62 Blood Pressure Mean [Left Arm] 82 02 Sat by Pulse Oximetry 99
[2024-02-08 09:28] VITALS: BP 122/62; PULSE 68; RESP 18; TEMP 37
[2024-02-08] MEDS: IBUPROFEN 800 MG TABLET PO (09:35)
== END 2024-02-08 09:36 | disposition home or self-care (01) ==
PROVIDERS: Emergency Provider Nurse Practitioner Family
DX: K04.7 Periapical abscess without sinus (principal); R68.84 Jaw pain; K08.9 Disorder of teeth and supporting structures, unspecified; K06.1 Gingival enlargement
CPT/HCPCS: 99212; G0381

== ENCOUNTER 2024-03-07 09:14 | Outpatient (CLI) | payer OTHER, SELFPAY ==
[2024-03-07 09:47] LABS: Basophils % 0.5 % (0.1-2.0); Eosinophils % 0.7 % (0.1-12.0); Hemoglobin 12.8 g/dL (12.2-16.2); Lymphocytes # 1.6 K/mm3 (0.7-4.5); Lymphocytes % 38.7 % (10-50); Mean Corpuscular HGB Conc 32.8 g/dL (31.8-35.4); Mean Corpuscular Hemoglobin 27.8 pg (27.0-31.2); Mean Corpuscular Volume 84.6 fl (81-99); Mean Platelet Volume 9.8 fl (7.4-10.4); Monocytes # 0.4 K/mm3 (0.1-1.0); Monocytes % 8.5 % (1.7-9.3); Neutrophils # 2.2 K/mm3 (1.8-7.8); Neutrophils % 51.6 % (37.0-80.0); Platelet Count 250 K/mm3 (142-424); Red Blood Count 4.61 M/mm3 (4.20-5.40); Red Cell Distribution Width 12.7 % (11.5-17.5); White Blood Count 4.2 K/mm3 (4.8-10.8)
[2024-03-07 10:55] LABS: Albumin Level 4.7 g/dl (3.5-5.0); Chloride 105 mmol/L (98-107); Potassium 4.3 mmoL/L (3.5-5.1); Sodium 140 mmol/L (136-145)
[2024-03-07 10:57] LABS: Alanine Aminotransferase 17 U/L (12-78); Aspartate Amino Transferase 23 U/L (14-36); Blood Urea Nitrogen 12 mg/dl (7-17); Estimated Glomerular Filt Rate 114 ml/min (>60); GFR (African American) 138 ML/MIN (>60)
[2024-03-07 10:58] LABS: Albumin/Globulin Ratio 1.8 (1.1-1.8); Alkaline Phosphatase 59 U/L (38-126); Anion Gap 16.3 mEq/L (5-15); Bilirubin,Total 0.8 mg/dl (0.2-1.3); Carbon Dioxide 23 mmol/L (22.0-30.0); Cholesterol 196 mg/dl (140-200); Globulin 2.6 g/dL (1.3-3.2); Glucose 99 mg/dl (74-100); Iron 77 ug/dL (37-170); Total Protein,Serum 7.3 g/dl (6.3-8.2); Triglycerides 82 mg/dl (30-150); VLDL Cholesterol 16 mg/dL (0-40)
[2024-03-07 10:59] LABS: Chol/HDL Ratio 7.5 (1-3.5); HDL Cholesterol 26 mg/dl (40-60)
[2024-03-07 11:07] LABS: Folate > 20.00 ng/mL
[2024-03-07 11:08] LABS: Total Iron Binding Capacity 376 ug/dL (265-497)
[2024-03-07 11:09] LABS: Direct LDL Cholesterol 138.61 mg/dL (100-129)
[2024-03-07 11:29] LABS: Thyroid Stimulating Hormone 5.97 uIU/mL (0.465-4.68)
[2024-03-07 11:33] LABS: Ferritin 39.3 ng/ml (6.24-137)
[2024-03-07 12:02] LABS: Free T4 (Free Thyroxine) 0.94 ng/dl (0.78-2.19)
[2024-03-07 12:46] LABS: Vitamin B12 540 pg/mL (239-931)
[2024-03-13 22:13] LABS: 1,25 Dihydroxy Vitamin D 76 pg/mL (.); 1,25-Dihydroxy, Vitamin D-2 <10 pg/mL (.); 1,25-Dihydroxy, Vitamin D-3 76 pg/mL (.)
== END 2024-03-07 23:59 | disposition home or self-care (01) ==
LOC: LAB 09:16
PROVIDERS: Visit Provider Nurse Practitioner Family
DX: R53.83 Other fatigue (principal); E03.9 Hypothyroidism, unspecified; E78.5 Hyperlipidemia, unspecified
CPT/HCPCS: 80053; 80061; 82607; 82652; 82728; 82746; 83540; 83550; 84439; 84443; 85025

== ENCOUNTER 2024-05-10 13:15 | Outpatient (CLI) | payer OTHER, SELFPAY ==
[2024-05-10 18:34] LABS: Thyroid Stimulating Hormone 3.22 uIU/mL (0.465-4.68)
== END 2024-05-10 23:59 | disposition home or self-care (01) ==
LOC: LAB.DROPOF 05-11 12:58
PROVIDERS: PCP Nurse Practitioner Family; Visit Provider Nurse Practitioner Family
DX: R53.83 Other fatigue (principal)
CPT/HCPCS: 84443